=== PATIENT | female | born 1955 ===

== ENCOUNTER → 2024-06-30 | Outpatient (CLI) | payer MEDICARE | LOC: LAB 10:00 → LAB SHORT 10:00 | DX: R30.0 Dysuria (principal) | CPT/HCPCS: 87086 ==

== ENCOUNTER 2024-11-03 18:18 | Emergency (ER) | payer MEDICARE ==
[~2024-11-03] VITALS: Ht 170.2 cm; Wt 76.2 kg
[2024-11-04] MEDS ORDERED: FentaNYL Citrate 50 MCG/ML 2 ML Injection IV ONE (04:05)
== END 2024-11-04 04:30 | disposition home or self-care (01) ==
LOC: ER 18:18
DX: S01.01XA Laceration without foreign body of scalp, initial encounter (principal); W18.30XA Fall on same level, unspecified, initial encounter; Z88.5 Allergy status to narcotic agent
CPT/HCPCS: 12001; 70450; 72125; 90471; 90702; 90714; 99284-25; A9270